=== PATIENT | male | born 1975 | race American Indian/Alaskan Native ===

== ENCOUNTER 2018-09-29 22:53 | Emergency (ER) | payer OTHER ==
[2018-09-29] MEDS ORDERED: HALDOL IM PRN (23:26)
[2018-09-29] MEDS ORDERED: ATIVAN IM PRN (23:26)
[2018-09-29] MEDS ORDERED: ATIVAN ONE (23:28)
[2018-09-29] MEDS ORDERED: HALDOL ONE (23:28)
--- NOTE | 2018-09-29 23:28 | Emergency Department Report ---
<TD POZO - Last Filed: 09/30/18 06:05> ED General Adult HPI - General Chief complaint: Altered Mental Status Stated complaint: ETOH Time Seen by Provider: 09/29/18 23:20 - Related Data Allergies Allergy/AdvReac Type Severity Reaction Status Date / Time Unable to Assess Allergy Unverified 09/29/18 23:13 ED Course - Reevaluation(s) Reevaluation #1: 09/30/18 06:06 Patient is alert and oriented 3 and gait is steady at this time he will be discharged home. ED Medical Decision Making - Lab Data Result diagrams: 09/29/18 23:38 09/29/18 23:38 ED Disposition Clinical Impression: Alcohol intoxication Disposition: DC-01 TO HOME OR SELFCARE Is pt being admited?: No Does the pt Need Aspirin: No Condition: Stable Instructions: Alcohol Intoxication (ED) Additional Instructions: Discontinue, moderate, or decreased consumption of alcohol. Long-term consumpti on of alcohol may cause addiction, and may cause many health issues, such as liver disease, kidney disease, heart disease. Follow up with a primary care doctor within the next month. Return to the emergency room right away with him, worsened or different symptoms. Referrals: [facility] [Provider Group] - 7-10 days Time of Disposition: 06:06 <HECTOR SEVERINO - Last Filed: 10/01/18 03:49> ED General Adult HPI - General Source: patient, EMS (ems notes not available at time of chart dictation), RN notes reviewed, old records reviewed Mode of arrival: Stretcher Limitations: Altered Mental Status, Other (patient is intoxicated) - History of Present Illness Initial comments: This is a 43-year-old gentleman. The patient was brought to the hospital by emergency medical services for alcohol intoxication. EMS notes are not currently available for collateral information. The patient is drunk and offers no complaints. He is requesting to eat. History is limited as the patient is floridly intoxicated. The patient is somewhat agitated and belligerent, and does not respond to verbal calming techniques, or show of force. He was apparently found sitting down, uncertain of any trauma. Patient is therefore placed on 2012, and medicated with Haldol, Ativan to allow for emergent acquisition of diagnostics to exclude emergent intracranial, cervical spine injury. The patient is now sleeping on a monitor, in no acute distress, however, he is sedated, and is therefore not able to endorse any symptoms, and not able to describe exacerbating or relieving factors, radiation, or qualitative nature of his symptoms. Last alcohol consumption is not known. He has made no complaint of homicidality or suicidality prior to sedation. -: unknown Radiation: other Quality: other Consistency: other Improves with: other Worsens with: other Associated Symptoms: other ED Review of Systems ROS: Stated complaint: ETOH Other details as noted in HPI Comment: Unobtainable due to pts medical conditions ED Physical Exam - General Limitations: Other (patient is intoxicated patient is intoxicated) General appearance: in no apparent distress, appears intoxicated - Head Head exam: Present: atraumatic, normocephalic - Eye Eye exam: Present: normal appearance, EOMI. Absent: nystagmus - ENT ENT exam: Present: normal exam, normal orophraynx, mucous membranes moist, TM's normal bilaterally, normal external ear exam - Neck Neck exam: Present: normal inspection, full ROM. Absent: tenderness, meningismus - Respiratory Respiratory exam: Present: normal lung sounds bilaterally. Absent: respiratory distress, wheezes, rales, rhonchi, stridor, chest wall tenderness - Cardiovascular Cardiovascular Exam: Present: regular rate, normal rhythm, normal heart sounds. Absent: bradycardia, tachycardia, irregular rhythm, systolic murmur, diastolic murmur, rubs, gallop - GI/Abdominal GI/Abdominal exam: Present: soft. Absent: distended, tenderness, guarding, rebound, rigid, pulsatile mass - Rectal Rectal exam: Present: deferred - Extremities Exam Extremities exam: Present: normal inspection, full ROM, other (2+ pulses noted in the bilateral upper, lower extremities. Compartments soft. No long bony tenderness. The pelvis is stable.). Absent: tenderness, pedal edema, joint swelling, calf tenderness - Back Exam Back exam: Present: normal inspection, full ROM. Absent: tenderness, CVA tenderness (R), paraspinal tenderness, vertebral tenderness - Neurological Exam Neurological exam: Present: altered (patient awake, intoxicated), other (moving 4 extremities. Speaking in full sentences. No obvious facial droop. Detailed neurologic examination not possible secondary to alcohol intoxication.) - Psychiatric Psychiatric exam: Present: normal affect, normal mood - Skin Skin exam: Present: warm, dry, intact, normal color. Absent: rash ED Course Vital Signs 09/29/18 09/29/18 09/30/18 23:10 23:15 00:27 Temperature 98.2 F Pulse Rate 101 H 110 H Respiratory 20 16 Rate Blood Pressure 149/106 134/96 134/96 O2 Sat by Pulse 96 91 Oximetry 09/30/18 09/30/18 09/30/18 00:31 02:00 04:00 Temperature Pulse Rate 87 78 Respiratory 24 18 16 Rate Blood Pressure 141/102 119/87 117/72 O2 Sat by Pulse 95 92 94 Oximetry 09/30/18 09/30/18 05:00 05:12 Temperature Pulse Rate Respiratory 18 15 Rate Blood Pressure 129/96 O2 Sat by Pulse 98 95 Oximetry ED Medical Decision Making - Lab Data Result diagrams: 09/29/18 23:38 09/29/18 23:38 Vital Signs 09/29/18 09/29/18 09/30/18 23:10 23:15 00:27 Temperature 98.2 F Pulse Rate 101 H 110 H Respiratory 20 16 Rate Blood Pressure 149/106 134/96 134/96 O2 Sat by Pulse 96 91 Oximetry 09/30/18 00:31 Temperature Pulse Rate 87 Respiratory 24 Rate Blood Pressure 141/102 O2 Sat by Pulse 95 Oximetry Lab Results 09/29/18 09/29/18 09/29/18 Range/Units 23:38 23:38 23:38 WBC 4.8 (4.5-11.0) K/mm3 RBC 4.04 (3.65-5.03) M/mm3 Hgb 13.4 (11.8-15.2) gm/dl Hct 38.4 (35.5-45.6) % MCV 95 H (84-94) fl MCH 33 H (28-32) pg MCHC 35 H (32-34) % RDW 14.0 (13.2-15.2) % Plt Count 163 (140-440) K/mm3 PT 12.1 L (12.2-14.9) Sec. INR 0.85 L (0.87-1.13) Sodium 146 H (137-145) mmol/L Potassium 3.8 (3.6-5.0) mmol/L Chloride 107.0 (98-107) mmol/L Carbon Dioxide 23 (22-30) mmol/L Anion Gap 20 mmol/L BUN 14 (9-20) mg/dL Creatinine 1.3 (0.8-1.5) mg/dL Estimated GFR 60 ml/min BUN/Creatinine Ratio 11 % Glucose 99 (75-100) mg/dL Calcium 8.9 (8.4-10.2) mg/dL Magnesium 2.30 (1.7-2.3) mg/dL Salicylates (2.8-20.0) mg/dL Acetaminophen (10.0-30.0) ug/mL Plasma/Serum Alcohol (0-0.07) % 09/29/18 09/29/18 09/29/18 Range/Units 23:38 23:38 23:38 WBC (4.5-11.0) K/mm3 RBC (3.65-5.03) M/mm3 Hgb (11.8-15.2) gm/dl Hct (35.5-45.6) % MCV (84-94) fl MCH (28-32) pg MCHC (32-34) % RDW (13.2-15.2) % Plt Count (140-440) K/mm3 PT (12.2-14.9) Sec. INR (0.87-1.13) Sodium (137-145) mmol/L Potassium (3.6-5.0) mmol/L Chloride (98-107) mmol/L Carbon Dioxide (22-30) mmol/L Anion Gap mmol/L BUN (9-20) mg/dL Creatinine (0.8-1.5) mg/dL Estimated GFR ml/min BUN/Creatinine Ratio % Glucose (75-100) mg/dL Calcium (8.4-10.2) mg/dL Magnesium (1.7-2.3) mg/dL Salicylates < 0.3 L (2.8-20.0) mg/dL Acetaminophen < 5.0 L (10.0-30.0) ug/mL Plasma/Serum Alcohol 0.25 H (0-0.07) % - EKG Data -: EKG Interpreted by In EKG shows normal: sinus rhythm Rate: normal - EKG Data When compared to previous EKG there are: previous EKG unavailable 09/30/18 01:47 EKG shows a sinus rhythm, 86 bpm, normal axis, QTC prolonged, atrial enlargement, not having chest pain, this EKG is not consistent with ST elevation myocardial infarction. This is an abnormal EKG. There is no prior for comparison. - Radiology Data Radiology results: report reviewed, image reviewed X-ray of the chest is negative for acute disease. Noncontrast CT scan of the brain is negative for acute disease. Noncontrast CT scan of cervical spine is negative for acute disease. - Medical Decision Making Differential diagnosis, including not limited to: Alcohol intoxication, in tracranial injury, cervical spine injury Assessment and plan: 43-year-old gentleman with probable simple alcohol intoxication. Physical examination after sedation with Haldol, Ativan is unremarkable. Screening laboratory studies unremarkable for significant toxicologic ingestion, with the exception of alcohol. Noncontrast CT scan of the brain, cervical spine is negative for acute disease. The patient will be placed on a 2013, and this will need to be reassessed once he is clinically sober. At this point in time, he does not appear to require emergent psychiatric consultation or evaluation. We will observe patient on a cardiac care nurse and pulse oximetry, until clinically sober, and able to offer more detailed history. I anticipate discharge once sober. Care will be transferred to the overnight physician, Dr. Omar Pozo, to reassess once clinically sober, and arrange for discharge once medically suitable for discharge. Critical care attestation.: If time is entered above; I have spent that time in minutes in the direct care of this critically ill patient, excluding procedure time. ED Disposition Is pt being admited?: No Does the pt Need Aspirin: No
--- NOTE | 2018-09-29 23:51 | XRay Report ---
PROCEDURE: XR CHEST 1V AP TECHNIQUE: Chest radiograph single view. HISTORY: etoh intox ams COMPARISONS: None . FINDINGS: Heart: Normal. Mediastinum/Vessels: Normal. Lungs/Pleural space: Normal. Bony thorax: No acute osseous abnormality. Life support devices: None. IMPRESSION: No acute cardiopulmonary abnormality. This document is electronically signed by Tomasa Aldana DO., September 29 2018 11:50:04 PM ET
[2018-09-30 00:03] LABS: Hematocrit 38.4 % (35.5-45.6); Hemoglobin 13.4 gm/dl (11.8-15.2); Mean Corpuscular HGB Conc 35 % (32-34); Mean Corpuscular Volume 95 fl (84-94); Platelet Count 163 K/mm3 (140-440); Red Blood Count 4.04 M/mm3 (3.65-5.03)
[2018-09-30 00:21] LABS: Calcium 8.9 mg/dL (8.4-10.2)
[2018-09-30 00:22] LABS: INR 0.85 (0.87-1.13)
--- NOTE | 2018-09-30 00:30 | Cat Scan Report ---
PROCEDURE: CT HEAD/BRAIN WO CON TECHNIQUE: Computerized tomography of the head was performed without contrast material. HISTORY: etoh intox ams COMPARISONS: None . FINDINGS: Skull and scalp: Normal . Paranasal sinuses: Mild opacification of the ethmoid sinuses . Ventricles and subarachnoid spaces: Normal . Cerebrum: No evidence of hemorrhage, acute infarction or mass . Cerebellum and brainstem: No evidence of hemorrhage, acute infarction or mass . Vasculature: Normal . Other: None . ASPECTS: 10 IMPRESSION: There is no evidence of an acute intracranial process . This document is electronically signed by Tomasa Aldana DO., September 30 2018 12:28:03 AM ET
--- NOTE | 2018-09-30 00:31 | Cat Scan Report ---
PROCEDURE: CT CERVICAL SPINE WO CON TECHNIQUE: Computerized tomography of the cervical spine was performed from the skull base to T1 wit hout contrast material. HISTORY: etoh intox ams COMPARISONS: None . FINDINGS: C1-2: No significant abnormality . C2-3: No significant abnormality . C3-4: No significant abnormality . C4-5: No significant abnormality . C5-6: No significant abnormality . C6-7: No significant abnormality . C7-T1: No significant abnormality . Fractures: None . Other: No additional findings . IMPRESSION: No significant abnormality . This document is electronically signed by Tomasa Aldana DO., September 30 2018 12:29:30 AM ET
[2018-09-30 05:10] VITALS: BP 129/96
== END 2018-09-30 06:59 | disposition home or self-care (01) ==
LOC: ED 22:53
DX: F10.129 Alcohol abuse with intoxication, unspecified (principal)
CPT/HCPCS: 36415; 70450; 71045; 72125; 80048; 82550; 83735; 85027; 85610; 93005; 93010; 96372; 99285; G0480; J1630; J2060; 80320